=== PATIENT | male | born 1940 | race Caucasian/White ===

== ENCOUNTER 2021-09-07 09:53 | Outpatient (CLI) | payer MEDICARE, OTHER ==
[2021-09-07 23:42] LABS: SARS-CoV-2 PCR by NAA Not Detected (NotDetected)
== END 2021-09-07 09:54 | disposition home or self-care (01) ==
LOC: LABBT 09:53
PROVIDERS: ATTEND Internal Medicine Gastroenterology
DX: Z01.812 Encounter for preprocedural laboratory examination (principal); Z20.822 Contact with and (suspected) exposure to COVID-19
CPT/HCPCS: U0003; U0005

== ENCOUNTER 2021-09-10 12:36 | Day surgery (SDC) | payer MEDICARE, OTHER ==
[2021-09-09 10:26] VITALS: BMI 28.8
[2021-09-10] MEDS ORDERED: PHENYLEPHRINE-NS 100 MCG/ML 10 ML SYRINGE ONE ×2 (13:00→14:17)
[2021-09-10] MEDS ORDERED: ePHEDrine 50 MG/ML VIAL ONE (14:17)
[2021-09-10] MEDS ORDERED: Lidocaine 1% PF 5 ML VIAL ONE (14:17)
[2021-09-10 16:24] LABS: Hemoglobin 11.3 g/dL (14.0-18.0); Mean Corpuscular Hemoglobin 32.3 pg (27.0-31.0); Mean Corpuscular Volume 97.7 fL (78.0-98.0); Mean Platelet Volume 7.7 fL (7.4-10.4); Platelet Count 165 thou/uL (130-400); RBC Distribution Width 13.6 % (11.5-14.5); White Blood Cell (WBC) Count 5.7 thou/uL (4.8-10.8)
[2021-09-10 16:39] LABS: Band 7 % (5-11); Eosinophils 16 % (0-10); Lymphocytes 15 % (21-51); MDiff Complete? YES; Monocytes 7 % (0-10); Neutrophil 54 % (42-75); Platelet Morphology Comment Appears Adequate; Polychromasia SLIGHT = 2-3 cells (100X) (0-2/hpf)
== END 2021-09-10 16:10 | disposition home or self-care (01) ==
LOC: SDC 12:36
PROVIDERS: ATTEND Internal Medicine Gastroenterology
PROC: 0DBK8ZX Excision of Ascending Colon, Via Natural or Artificial Opening Endoscopic, Diagnostic (ICD-10-PCS; principal; 2021-09-10)
PROC: 0DB38ZX Excision of Lower Esophagus, Via Natural or Artificial Opening Endoscopic, Diagnostic (ICD-10-PCS; 2021-09-10)
PROC: 0DB78ZX Excision of Stomach, Pylorus, Via Natural or Artificial Opening Endoscopic, Diagnostic (ICD-10-PCS; 2021-09-10)
PROC: 0DB18ZX Excision of Upper Esophagus, Via Natural or Artificial Opening Endoscopic, Diagnostic (ICD-10-PCS; 2021-09-10)
DX: D50.9 Iron deficiency anemia, unspecified (principal); D12.2 Benign neoplasm of ascending colon; K20.80 Other esophagitis without bleeding; K31.89 Other diseases of stomach and duodenum; K57.30 Diverticulosis of large intestine without perforation or abscess without bleeding; K64.8 Other hemorrhoids; K22.89 Other specified disease of esophagus; K44.9 Diaphragmatic hernia without obstruction or gangrene; D72.819 Decreased white blood cell count, unspecified; I48.91 Unspecified atrial fibrillation; K21.9 Gastro-esophageal reflux disease without esophagitis; I25.2 Old myocardial infarction; E78.5 Hyperlipidemia, unspecified; I10 Essential (primary) hypertension; Z86.010 Personal history of colon polyps; Z79.01 Long term (current) use of anticoagulants; Z79.82 Long term (current) use of aspirin; Z79.899 Other long term (current) drug therapy; Z95.810 Presence of automatic (implantable) cardiac defibrillator
CPT/HCPCS: 82728; 85025; 88305; J3490

== ENCOUNTER 2021-09-11 07:11 | Day surgery (SDC) | payer MEDICARE, OTHER ==
[2021-09-10 09:11] VITALS: BMI 28.8
[2021-09-11 08:26] VITALS: BP 113/70; TEMP 98.4
[2021-09-11] MEDS ORDERED: Iopamidol-M 200 41% 20 ML VIAL ONE (10:03)
== END 2021-09-11 10:10 | disposition home or self-care (01) ==
LOC: RAD 07:11
PROVIDERS: ATTEND Neurological Surgery
DX: M51.36 Other intervertebral disc degeneration, lumbar region (principal); M48.062 Spinal stenosis, lumbar region with neurogenic claudication; K76.89 Other specified diseases of liver; I25.2 Old myocardial infarction; E78.00 Pure hypercholesterolemia, unspecified; I10 Essential (primary) hypertension; Z79.01 Long term (current) use of anticoagulants; Z79.82 Long term (current) use of aspirin; Z79.899 Other long term (current) drug therapy; Z95.0 Presence of cardiac pacemaker; Z95.5 Presence of coronary angioplasty implant and graft; Z95.810 Presence of automatic (implantable) cardiac defibrillator
CPT/HCPCS: 62304; 72132; Q9966

== ENCOUNTER 2021-09-23 08:35 | Outpatient (CLI) | payer MEDICARE, OTHER ==
[2021-09-23 10:55] LABS: Hemoglobin 11.5 g/dL (13.5-17.5); Mean Corpuscular HGB CONC 32.1 g/dL (32.0-36.0); Mean Corpuscular Hemoglobin 30.7 pg (27.0-33.0); Mean Corpuscular Volume 95.5 fl (81.2-95.1); Mean Platelet Volume 10.8 fl (7.4-10.4); Platelet Count 236 10x3/uL (150-450); RBC Distribution Width 14.3 % (11.5-14.5); Red Blood Cell (RBC) Count 3.75 10x6/uL (4.32-5.72)
[2021-09-23 11:12] LABS: Anion Gap 14 mmol/L (10-20); BUN (Urea Nitrogen) 23 mg/dL (8.4-25.7); Calc. Creatinine Clearance 0 mL/min (70-130); Calcium 8.5 mg/dL (7.8-10.44); Carbon Dioxide 22 mmol/L (23-31); Chloride 107 mmol/L (98-107); Glucose 88 mg/dL (83-110); Potassium 4.2 mmol/L (3.5-5.1); Sodium 139 mmol/L (136-145)
[2021-09-23 17:20] LABS: SARS-CoV-2 PCR by NAA Not Detected (NotDetected)
== END 2021-09-23 08:36 | disposition home or self-care (01) ==
LOC: LABBT 08:35
PROVIDERS: ATTEND Neurological Surgery
DX: Z01.818 Encounter for other preprocedural examination (principal); M48.062 Spinal stenosis, lumbar region with neurogenic claudication; Z20.822 Contact with and (suspected) exposure to COVID-19
CPT/HCPCS: 80048; 85027; 93005; U0003; U0005; 93010

== ENCOUNTER 2021-09-28 07:06 | Observation (INO) | payer MEDICARE, OTHER ==
[2021-09-28] MEDS ORDERED: Fentanyl 100 MCG/2 ML VIAL ONE ×2 (10:01→12:11)
[2021-09-28] MEDS ORDERED: Thrombin 5000 UNITS/5 ML VIAL ONE (10:03)
[2021-09-28] MEDS ORDERED: Lidocaine 1% PF 5 ML VIAL ONE (10:38)
[2021-09-28] MEDS ORDERED: PROPOFOL 200 MG/20 ML VIAL ONE (10:38)
[2021-09-28] MEDS ORDERED: PHENYLEPHRINE-NS 100 MCG/ML 10 ML SYRINGE ONE (10:38)
[2021-09-28] MEDS ORDERED: Albumin 5% 250 ML ONE (11:31)
[2021-09-28] MEDS ORDERED: Ondansetron HCl/PF 4 MG/2 ML Vial IVP PRN (11:37)
[2021-09-28] MEDS ORDERED: Promethazine HCl 25 MG/ML VIAL IVPB PRN (11:37)
[2021-09-28] MEDS ORDERED: Promethazine HCl 25 MG/ML VIAL IM PRN ×2 (11:37→12:15)
[2021-09-28] MEDS ORDERED: Morphine 4 MG/ML VIAL SLOW IVP PRN ×2 (12:08→12:15)
[2021-09-28] MEDS ORDERED: Tamsulosin HCl 0.4 MG CAP ONE (12:11)
[2021-09-28] MEDS ORDERED: Acetaminophen/Codeine 30-300mg Tablet PO PRN (12:15)
[2021-09-28] MEDS ORDERED: Promethazine 25 MG TAB PO PRN (12:15)
[2021-09-28] MEDS ORDERED: Milk Of Magnesia 30 ML UDCUP PO PRN (12:15)
[2021-09-28] MEDS ORDERED: Mag-Al 1200 mg/1200 mg/30 ML UDCUP PO PRN (12:15)
[2021-09-28] MEDS ORDERED: diphenhydrAMINE 50 MG/ML VIAL IVP PRN (12:15)
[2021-09-28] MEDS ORDERED: traMADol HCl 50 MG TAB PO PRN ×2 (12:15)
[2021-09-28] MEDS ORDERED: diphenhydrAMINE 25 MG CAP PO PRN (12:15)
[2021-09-28] MEDS ORDERED: Promethazine HCl 12.5 MG SUPP PR PRN (12:15)
[2021-09-28] MEDS ORDERED: tiZANidine HCl 4 MG TAB ONE (12:23)
[2021-09-28] MEDS: Sodium Chloride 0.9% 1,000 ML IV SCH (14:45)
[2021-09-28] MEDS: Acetaminophen/Codeine 30-300mg Tablet PO PRN ×2 (16:02→20:57)
[2021-09-28 17:43] VITALS: BMI 29.1
[2021-09-28] MEDS ORDERED: CEFAZOLIN 2 GM in Premix Bag 1 BAG IVPB SCH (18:00)
[2021-09-28] MEDS ORDERED: CEFAZOLIN 2 GM, Admixture Fee 1 EACH in Sodium Chloride 0.9% 100 ML IVPB SCH (18:30)
[2021-09-28] MEDS: tiZANidine HCl 4 MG TAB PO PRN (20:56)
[2021-09-28] MEDS ORDERED: Atorvastatin Calcium 20 MG TAB PO SCH (21:00)
[2021-09-28] MEDS ORDERED: Ezetimibe 10 MG TAB PO SCH (21:00)
[2021-09-28] MEDS: Sotalol HCl 80 MG TAB PO SCH (21:10)
[2021-09-29] MEDS: tiZANidine HCl 4 MG TAB PO PRN (02:43)
[2021-09-29] MEDS: CEFAZOLIN 2 GM, Admixture Fee 1 EACH in Sodium Chloride 0.9% 100 ML IVPB SCH ×2 (02:43→08:41)
[2021-09-29] MEDS: Sodium Chloride 0.9% 1,000 ML IV SCH ×2 (03:12→11:57)
[2021-09-29] MEDS ORDERED: Spironolactone 25 MG TAB PO SCH (08:00)
[2021-09-29] MEDS: Sotalol HCl 80 MG TAB PO SCH (08:37)
[2021-09-29] MEDS: Acetaminophen/Codeine 30-300mg Tablet PO PRN (08:49)
[2021-09-29] MEDS ORDERED: Ferrous Gluconate 324 MG TAB PO SCH (09:00)
[2021-09-29] MEDS ORDERED: Cholecalciferol 1,000 UNITS (25 MCG) TAB PO SCH (09:00)
[2021-09-29] MEDS ORDERED: Ezetimibe 10 MG TAB PO SCH (09:00)
[2021-09-29] MEDS ORDERED: Cyanocobalamin (Vitamin B-12) 1,000 MCG TAB PO SCH (09:00)
[2021-09-29] MEDS ORDERED: Sodium Chloride 0.9% 10 ML ONE (11:42)
[2021-09-29 13:43] VITALS: BP 118/65; TEMP 98.1
== END 2021-09-29 15:00 | disposition home or self-care (01) ==
LOC: SDC 07:06 → SURG B 12:00
PROVIDERS: ADMIT Neurological Surgery; ATTEND Neurological Surgery
PROC: 01NB0ZZ Release Lumbar Nerve, Open Approach (ICD-10-PCS; principal; 2021-09-28)
DX: M48.062 Spinal stenosis, lumbar region with neurogenic claudication (principal); I25.2 Old myocardial infarction; E78.00 Pure hypercholesterolemia, unspecified; I11.9 Hypertensive heart disease without heart failure; Z87.891 Personal history of nicotine dependence; Z79.899 Other long term (current) drug therapy; Z95.5 Presence of coronary angioplasty implant and graft; Z95.810 Presence of automatic (implantable) cardiac defibrillator
CPT/HCPCS: 63047; 76000; 97116; 97139; P9045; 96365; 96366; 96376; G0378; J0690; J2704; J3010; J3370; J3490; J7050

== ENCOUNTER 2023-09-27 06:53 | Inpatient (IN) | payer MEDICARE, OTHER ==
[2023-09-27] MEDS ORDERED: Pantoprazole 40 MG VIAL ONE (07:08)
[2023-09-27 07:16] LABS: #Basophils 0.1 thou/uL (0.0-0.2); #Eosinphils 0.3 thou/uL (0.0-0.7); #Monocytes 0.7 thou/uL (0.11-0.59); #Neutrophils 5.1 thou/uL (1.40-6.50); %Basophils 1.4 % (0.0-1.0); %Eosinophils 4.2 % (0.0-10.0); %Lymphocytes 14.4 % (21.0-51.0); %Monocytes 9.9 % (0.0-10.0); %Neutrophils 69.7 % (42.0-75.0); Hematocrit 25.5 % (42.0-52.0); Mean Corpuscular HGB CONC 31.4 g/dL (32.0-36.0); Mean Corpuscular Hemoglobin 31.1 pg (27.0-31.0); Mean Corpuscular Volume 99.2 fl (78.0-98.0); Mean Platelet Volume 10.1 fL (7.4-10.4); Platelet Count 240 10x3/uL (130-400); RBC Distribution Width 13.8 % (11.5-14.5); Red Blood Cell (RBC) Count 2.57 mill/uL (4.70-6.10); White Blood Cell (WBC) Count 7.4 10x3/uL (4.8-10.8)
[2023-09-27 07:30] LABS: INR-International Normal Ratio 1.2; PTT 27.1 sec (22.9-36.1); Prothrombin Time 15.2 sec (12.0-14.7)
[2023-09-27 07:46] LABS: ALT (SGPT) 18 U/L (8-55); AST (SGOT) 18 U/L (5-34); Albumin 4.1 g/dL (3.4-4.8); Alkaline Phosphatase 66 U/L (40-110); Anion Gap 10 mmol/L (10-20); BUN (Urea Nitrogen) 33 mg/dL (8.4-25.7); Bilirubin, Total 0.7 mg/dL (0.2-1.2); Calc. Creatinine Clearance 0 mL/min (70-130); Calcium 8.4 mg/dL (7.8-10.44); Carbon Dioxide 25 mmol/L (23-31); Chloride 107 mmol/L (98-107); Estimated GFR 54; Globulin 1.8 g/dL (2.4-3.5); Glucose 107 mg/dL (83-110); Potassium 4.2 mmol/L (3.5-5.1); Protein, Total 5.9 g/dL (5.8-8.1); Sodium 138 mmol/L (136-145)
[2023-09-27] MEDS ORDERED: Ondansetron PF 4 MG/2 ML Vial IVP PRN (10:02)
[2023-09-27] MEDS ORDERED: Acetaminophen 325 MG TAB PO PRN (10:02)
[2023-09-27 10:27] VITALS: BMI 28.8
[2023-09-27] MEDS ORDERED: FLU VACC QS2023(65UP)/MF59C/PF 60 MCG/0.5 ML SYRINGE IM ONE (11:00)
[2023-09-27] MEDS: Sodium Chloride 0.9% 1,000 ML IV SCH ×2 (11:10→23:55)
[2023-09-27] MEDS ORDERED: Lidocaine 1% PF 5 ML VIAL ONE (13:45)
[2023-09-27] MEDS ORDERED: PROPOFOL 200 MG/20 ML VIAL ONE (13:45)
[2023-09-27] MEDS ORDERED: Iron, Sodium Ferric Gluconate 250 MG in Sodium Chloride 0.9% 250 ML 250 ML IVPB SCH (15:00)
[2023-09-27] MEDS: Pantoprazole 40 MG VIAL IVP SCH (20:17)
[2023-09-28 06:05] LABS: #Basophils 0.1 thou/uL (0.0-0.2); #Eosinphils 0.2 thou/uL (0.0-0.7); #Monocytes 0.7 thou/uL (0.11-0.59); #Neutrophils 4.4 thou/uL (1.40-6.50); %Basophils 1.3 % (0.0-1.0); %Eosinophils 3.7 % (0.0-10.0); %Lymphocytes 12.1 % (21.0-51.0); %Monocytes 11.1 % (0.0-10.0); %Neutrophils 70.2 % (42.0-75.0); Hematocrit 22.1 % (42.0-52.0); Hemoglobin 6.7 g/dL (14.0-18.0); Mean Corpuscular HGB CONC 30.3 g/dL (32.0-36.0); Mean Corpuscular Hemoglobin 30.7 pg (27.0-31.0); Mean Corpuscular Volume 101.4 fl (78.0-98.0); Mean Platelet Volume 10.6 fL (7.4-10.4); Platelet Count 205 10x3/uL (130-400); Red Blood Cell (RBC) Count 2.18 mill/uL (4.70-6.10); White Blood Cell (WBC) Count 6.2 10x3/uL (4.8-10.8)
[2023-09-28 06:32] LABS: Anion Gap 8 mmol/L (10-20); BUN (Urea Nitrogen) 23 mg/dL (8.4-25.7); Calc. Creatinine Clearance 75 mL/min (70-130); Carbon Dioxide 25 mmol/L (23-31); Chloride 111 mmol/L (98-107); Estimated GFR 80; Glucose 105 mg/dL (83-110); Potassium 3.8 mmol/L (3.5-5.1); Sodium 140 mmol/L (136-145)
[2023-09-28] MEDS: Pantoprazole 40 MG VIAL IVP SCH ×2 (08:00→21:04)
[2023-09-28] MEDS ORDERED: Non-Formulary Item 1 EACH (Ferrous Gluconate [Ferrous Gluconate] 324 MG Tablet) PO SCH (09:00)
[2023-09-28] MEDS ORDERED: [UNRECOGNIZED DRUG - OTHER] PO SCH (09:00)
[2023-09-28] MEDS ORDERED: CYANOCOBALAMIN 2000 MCG PO SCH (09:00)
[2023-09-28] MEDS: Ferrous Gluconate 324 MG TAB PO SCH (10:41)
[2023-09-28] MEDS: Cyanocobalamin (Vitamin B-12) 1,000 MCG TAB PO SCH (10:41)
[2023-09-28] MEDS: Sodium Chloride 0.9% 1,000 ML IV SCH (14:31)
[2023-09-28 16:38] LABS: Hematocrit 25.9 % (42.0-52.0); Hemoglobin 8.2 g/dL (14.0-18.0)
[2023-09-28] MEDS ORDERED: Simvastatin 40 MG TAB PO SCH (21:00)
[2023-09-28] MEDS ORDERED: Atorvastatin Calcium 20 MG TAB PO SCH (21:00)
[2023-09-28] MEDS ORDERED: Ezetimibe 10 MG TAB PO SCH (21:00)
[2023-09-29] MEDS: Sodium Chloride 0.9% 1,000 ML IV SCH (03:33)
[2023-09-29 06:11] LABS: #Basophils 0.1 thou/uL (0.0-0.2); #Eosinphils 0.2 thou/uL (0.0-0.7); #Monocytes 0.7 thou/uL (0.11-0.59); %Basophils 1.6 % (0.0-1.0); %Eosinophils 3.4 % (0.0-10.0); %Lymphocytes 16.3 % (21.0-51.0); %Neutrophils 66.4 % (42.0-75.0); Hematocrit 25.6 % (42.0-52.0); Hemoglobin 7.9 g/dL (14.0-18.0); Mean Corpuscular HGB CONC 30.9 g/dL (32.0-36.0); Mean Corpuscular Hemoglobin 30.2 pg (27.0-31.0); Mean Corpuscular Volume 97.7 fl (78.0-98.0); Mean Platelet Volume 10.2 fL (7.4-10.4); Platelet Count 222 10x3/uL (130-400); RBC Distribution Width 15.8 % (11.5-14.5); Red Blood Cell (RBC) Count 2.62 mill/uL (4.70-6.10); White Blood Cell (WBC) Count 6.1 10x3/uL (4.8-10.8)
[2023-09-29 06:30] LABS: Anion Gap 12 mmol/L (10-20); BUN (Urea Nitrogen) 18 mg/dL (8.4-25.7); Calc. Creatinine Clearance 75 mL/min (70-130); Calcium 8.3 mg/dL (7.8-10.44); Carbon Dioxide 23 mmol/L (23-31); Chloride 109 mmol/L (98-107); Estimated GFR 80; Glucose 109 mg/dL (83-110); Potassium 3.8 mmol/L (3.5-5.1); Sodium 140 mmol/L (136-145)
[2023-09-29] MEDS: Cyanocobalamin (Vitamin B-12) 1,000 MCG TAB PO SCH (08:07)
[2023-09-29] MEDS: Pantoprazole 40 MG VIAL IVP SCH (08:07)
[2023-09-29] MEDS: Ferrous Gluconate 324 MG TAB PO SCH (08:07)
[2023-09-29 08:39] VITALS: TEMP 97.8
[2023-09-29 10:54] VITALS: BP 92/53
== END 2023-09-29 10:51 | disposition home or self-care (01) | DRG 378 ==
LOC: ERS 06:53 → T4-B 09:16
PROVIDERS: ADMIT Internal Medicine; ATTEND Internal Medicine
PROC: 0DB78ZX Excision of Stomach, Pylorus, Via Natural or Artificial Opening Endoscopic, Diagnostic (ICD-10-PCS; principal; 2023-09-27)
PROC: 30233N1 Transfusion of Nonautologous Red Blood Cells into Peripheral Vein, Percutaneous Approach (ICD-10-PCS; 2023-09-28)
DX: K25.4 Chronic or unspecified gastric ulcer with hemorrhage (principal); D62 Acute posthemorrhagic anemia; N17.9 Acute kidney failure, unspecified; I25.810 Atherosclerosis of coronary artery bypass graft(s) without angina pectoris; K22.11 Ulcer of esophagus with bleeding; T39.395A Adverse effect of other nonsteroidal anti-inflammatory drugs [NSAID], initial encounter; K44.9 Diaphragmatic hernia without obstruction or gangrene; Z96.659 Presence of unspecified artificial knee joint; E78.5 Hyperlipidemia, unspecified; Z79.899 Other long term (current) drug therapy; Z98.890 Other specified postprocedural states; Z95.1 Presence of aortocoronary bypass graft; Z79.01 Long term (current) use of anticoagulants
CPT/HCPCS: 36415; 36430; 80048; 80053; 85025; 85610; 85730; 86850; 86900; 86901; 88305; 93005; 96374; C9113; J2704; J2916; J7050; P9016

== ENCOUNTER 2023-12-13 09:26 | Outpatient (CLI) | payer MEDICARE, OTHER ==
[2023-12-13] MEDS ORDERED: Iopamidol 370 76% 100 ML VIAL ONE (10:06)
== END 2023-12-13 09:27 | disposition home or self-care (01) ==
LOC: BICCT 09:26
PROVIDERS: ATTEND Internal Medicine Cardiovascular Disease
DX: I87.1 Compression of vein (principal); R06.02 Shortness of breath; J90 Pleural effusion, not elsewhere classified; R59.0 Localized enlarged lymph nodes; I51.7 Cardiomegaly; J98.4 Other disorders of lung; R91.8 Other nonspecific abnormal finding of lung field
CPT/HCPCS: 71275; 82565